=== PATIENT | male | born 2000 | race African-American/Black ===

== ENCOUNTER 2024-03-17 18:41 | Emergency (ER) | payer OTHER ==
[2024-03-17 21:09] VITALS: PULSE 78
[2024-03-17 21:12] VITALS: BP 139/84; RESP 16; TEMP 98.1; BMI 29.9
[2024-03-18 08:26] LABS: HIV INTERPRETATION NEGATIVE (NEGATIVE)
== END 2024-03-18 00:16 | disposition home or self-care (01) ==
LOC: FER 18:41
DX: J40 Bronchitis, not specified as acute or chronic (principal); R06.02 Shortness of breath; R05.9 Cough, unspecified; R06.2 Wheezing
CPT/HCPCS: 36415; 71046-TC-FY; 86803; 87389; 99284-25